=== PATIENT | male | born 1960 | race African-American/Black ===

== ENCOUNTER 2018-05-05 01:47 | Emergency (ER) | payer OTHER ==
[~2018-05-05] VITALS: Ht 190.5 cm; Wt 93.0 kg
[~2018-05-05 01:47] MED LIST: HYDROCODONE-AP1 EAC6 PO; IBUPROFEN 400400 M1 PO; IRON325 PO; KEFLEX500 MG PO; MEDROL DOSPAK21 TA1 PO; ULTRAM 50MG TAB50 MG PO; ZANTAC 150MG T150 M1 PO
[2018-05-05 02:54] LABS: ABSOLUTE NEUTROPHILS 2.9 thou/uL (1.4-8.2); EOSINOPHILS 5.1 % (0.0-3.0); HEMATOCRIT 36.8 % (42.0-52.0); HEMOGLOBIN 12.5 gm/dL (14.0-18.0); LYMPHOCYTES 35.8 % (24.0-44.0); MCH 31.9 pg (26.0-34.0); MCHC 33.9 g/dL (28.0-37.0); MCV 93.9 fL (80.0-100.0); MONOCYTES 7.4 % (1.0-8.0); PLATELET COUNT 297 thou/uL (150-400); POLYS 50.7 % (36.0-66.0); RBC 3.92 mil/uL (4.50-6.00); RDW 13.8 % (10.5-14.5); WBC 5.7 thou/uL (4.0-11.0)
[2018-05-05 02:59] LABS: CREATININE 0.9 mg/dL (0.7-1.3); POTASSIUM 4.2 mmol/L (3.5-5.1)
[2018-05-05] MEDS ORDERED: KEFLEX500 M1 PO (03:17)
[2018-05-05] MEDS ORDERED: NORCO 5-325 TA1 EACH PO (03:18)
[2018-05-05 04:40] VITALS: BP 144/79
== END 2018-05-05 04:40 | disposition home or self-care (01) ==
LOC: ER 01:47
PROVIDERS: Emergency Medicine
DX: L03.114 Cellulitis of left upper limb (principal); Z86.14 Personal history of Methicillin resistant Staphylococcus aureus infection

== ENCOUNTER 2018-06-11 06:31 | Emergency (ER) | payer OTHER ==
[~2018-06-11] VITALS: Ht 190.5 cm; Wt 93.0 kg
[~2018-06-11 06:31] MED LIST changes: +KEFLEX500 M1 PO; +NORCO 5-325 TA1 EACH PO
[2018-06-11 06:37] VITALS: BP 133/95
[2018-06-11] MEDS ORDERED: MOBIC15 MG PO (07:08)
== END 2018-06-11 07:20 | disposition home or self-care (01) ==
LOC: ER 06:31
DX: M65.841 Other synovitis and tenosynovitis, right hand (principal); F17.200 Nicotine dependence, unspecified, uncomplicated

== ENCOUNTER 2018-11-17 05:10 | Emergency (ER) | payer OTHER ==
[~2018-11-17] VITALS: Ht 190.5 cm; Wt 90.7 kg
[~2018-11-17 05:10] MED LIST changes: +MOBIC15 MG PO
[2018-11-17] MEDS ORDERED: TOBRAMYCIN SULFA5 M1 OPHTHALMIC (06:03)
[2018-11-17 06:16] VITALS: BP 156/90
== END 2018-11-17 06:25 | disposition home or self-care (01) ==
LOC: ER 05:10
DX: S05.02XA Injury of conjunctiva and corneal abrasion without foreign body, left eye, initial encounter (principal); Y29.XXXA Contact with blunt object, undetermined intent, initial encounter; Y93.89 Activity, other specified; Y92.89 Other specified places as the place of occurrence of the external cause; Y99.8 Other external cause status

== ENCOUNTER 2018-12-03 04:13 | Emergency (ER) | payer OTHER ==
[~2018-12-03] VITALS: Ht 190.5 cm; Wt 88.5 kg
[~2018-12-03 04:13] MED LIST changes: +TOBRAMYCIN SULFA5 M1 OPHTHALMIC
[2018-12-03 04:17] VITALS: BP 141/87
[2018-12-03] MEDS ORDERED: NAPROSYN500 MG PO (04:58)
[2018-12-03] MEDS ORDERED: TRAMADOL 50 MG50 MG PO (04:58)
== END 2018-12-03 05:10 | disposition home or self-care (01) ==
LOC: ER 04:13
DX: S93.401A Sprain of unspecified ligament of right ankle, initial encounter (principal); F17.200 Nicotine dependence, unspecified, uncomplicated; Z86.14 Personal history of Methicillin resistant Staphylococcus aureus infection; X50.0XXA Overexertion from strenuous movement or load, initial encounter; Y92.89 Other specified places as the place of occurrence of the external cause; Y93.89 Activity, other specified; Y99.8 Other external cause status

== ENCOUNTER → 2020-07-14 | Outpatient (CLI) | payer OTHER ==
[~2020-07-14] MED LIST changes: +NAPROSYN500 MG PO; +TRAMADOL 50 MG50 MG PO
[2020-07-14 11:32] LABS: ABSOLUTE NEUTROPHILS 2.4 thou/uL (1.4-8.2); BASOPHILS 1.1 % (0.0-2.0); EOSINOPHILS 3.5 % (0.0-3.0); HEMATOCRIT 38.7 % (42.0-52.0); HEMOGLOBIN 13.3 gm/dL (14.0-18.0); LYMPHOCYTES 37.5 % (24.0-44.0); MCH 33.5 pg (26.0-34.0); MCHC 34.3 g/dL (28.0-37.0); MCV 97.6 fL (80.0-100.0); MONOCYTES 8.6 % (1.0-8.0); PLATELET COUNT 299 thou/uL (150-400); POLYS 49.3 % (36.0-66.0); RBC 3.96 mil/uL (4.50-6.00); RDW 14.2 % (10.5-14.5); WBC 4.9 thou/uL (4.0-11.0)
[2020-07-14 11:50] LABS: ALBUMIN 3.8 g/dL (3.4-5.0); ANION GAP 8 mmol/L (7-16); BUN 16 mg/dL (7-18); CHLORIDE 104 mmol/L (98-107); CHOLESTEROL 214 mg/dL (<200); CO2 29 mmol/L (21-32); CREATININE 1.1 mg/dL (0.7-1.3); GLUCOSE 98 mg/dL (74-106); HDL CHOLESTEROL 111 mg/dL (>40); LDL CHOLESTEROL 84 mg/dL (<100); POTASSIUM 4.6 mmol/L (3.5-5.1); SGOT 22 U/L (15-37); SGPT 32 U/L (30-65); SODIUM 141 mmol/L (136-145); TC:HDL 1.9 Ratio (Not establshd); TOTAL BILIRUBIN 0.7 mg/dL (0.2-1.0); TOTAL PROTEIN 7.8 g/dL (6.4-8.2); TRIGLYCERIDE 98 mg/dL (<150); VLDL 20 mg/dL (<40)
[2020-07-15 00:06] LABS: GLYCOHEMOGLOBIN (HGB A1C) 5.6 % (4.8-5.6)
== END ==
LOC: LAB 10:45
PROVIDERS: ATTEND Family Medicine
DX: Z00.00 Encounter for general adult medical examination without abnormal findings (principal)

== ENCOUNTER → 2021-03-20 | Outpatient (CLI) | payer OTHER | LOC: LAB 05:41 | PROVIDERS: ATTEND Student in an Organized Health Care Education/Training Program | DX: Z01.812 Encounter for preprocedural laboratory examination (principal); Z20.822 Contact with and (suspected) exposure to COVID-19 ==

== ENCOUNTER → 2021-03-21 | Outpatient (CLI) | payer OTHER ==
[~2021-03-21] VITALS: Ht 188 cm; Wt 90.7 kg
--- NOTE | 2021-03-27 11:07 | PATH ---
[facility] [place] [address] PATHOLOGY RPT PROCEDURE Name: HESHAM EMANUEL Room #: REG [facility] Luis.#: [id number] Admission: 03/21/21 Date of : 64 Discharge: Report #: [id number] Path Case #: [id number] [facility] Accession Number: [id number] . 01 Material submitted: . PART A: ileo-cecal valve - ILEOCECAL VALVE POLYP PART B: colon - ASCENDING COLON POLYP BIOPSY. Modifiers: ascending PART C: splenic flexure - SPLENIC FLEXURE POLYP . 01 Clinical history: . COLONOSCOPY COLON POLYPS, DIVERTICULOSIS, INTERNAL HEMORRHOIDS . 02 Diagnosis: A. Ileocecal valve polyp, polypectomy: - Fragments of tubular adenoma. - Negative for high-grade dysplasia or malignancy. . B. Ascending colon polyp, biopsy: - Tubular adenoma. - Negative for high-grade dysplasia or malignancy. . C. Splenic flexure polyp, polypectomy: - Tubular adenoma. - Negative for high-grade dysplasia or malignancy. (ANK:pit; 03/23/2021) QTP 03/23/2021 1051 Local . 02 Electronically signed: . Cecy Mustafa MD, Pathologist NPI- [id number] . 01 Gross description: . A. The specimen is received in formalin, labeled "Hesham Emanuel, ileocecal valve polyp" and consists of multiple morocho to pale yellow irregular tissues aggregating 2.0 x 0.9 x 0.3 cm which are filtered and submitted in toto in A1. . B. The specimen is received in formalin, labeled "Hesham Emanuel, ascending colon polyp BX" and consists of 2 morocho irregular tissues aggregating 0.4 x 0.3 x 0.2 cm which are submitted in toto in B1. . C. The specimen is received in formalin, labeled "Hesham Emanuel, splenic flexure polyp" and consists of multiple morocho irregular tissues aggregating 1.4 x 0.9 x 0.2 cm which are filtered and submitted in toto in C1.([facility] [place]; 03/22/2021) DKA/DKA 03/22/2021 [address] [place] [address] PATHOLOGY RPT PROCEDURE Name: HESHAM EMANUEL [place] Room #: REG CLI Steve#: [id number] Admission: 03/21/21 Date of : 64 Discharge: Report #: [id number] Path Case #: [id number] . 02 Pathologist provided ICD-10: D12.0, D12.2, D12.3 . 02 CPT . 573860, 309058, 950803 Specimen Comment: A courtesy copy of this report has been sent to [phone] Specimen Comment: [id number] Specimen Comment: Report sent to / DR GUSTAFSON Specimen Comment: A duplicate report has been generated due to demographic updates. Performed at: [address], [place] [id number] MD Dominic Lopez MD Phone: [phone] Performed at: [address] [id number] MD Cecy Mustafa MD Phone: [phone]
== END | disposition home or self-care (01) ==
LOC: GI
PROVIDERS: ATTEND Internal Medicine Gastroenterology
DX: Z12.11 Encounter for screening for malignant neoplasm of colon (principal); D12.0 Benign neoplasm of cecum; D12.2 Benign neoplasm of ascending colon; D12.3 Benign neoplasm of transverse colon; K57.30 Diverticulosis of large intestine without perforation or abscess without bleeding; K64.8 Other hemorrhoids; F17.210 Nicotine dependence, cigarettes, uncomplicated; Z98.890 Other specified postprocedural states; Z79.899 Other long term (current) drug therapy
CPT/HCPCS: 62110; 62900

== ENCOUNTER 2021-04-05 22:24 | Emergency (ER) | payer OTHER ==
[~2021-04-05] VITALS: Ht 190.5 cm; Wt 90.7 kg
[2021-04-05 23:58] LABS: ABSOLUTE NEUTROPHILS 6.3 thou/uL (1.4-8.2); BASOPHILS 0.7 % (0.0-2.0); EOSINOPHILS 1.2 % (0.0-3.0); HEMATOCRIT 36.7 % (42.0-52.0); HEMOGLOBIN 12.2 gm/dL (14.0-18.0); LYMPHOCYTES 20.4 % (24.0-44.0); MCH 32.7 pg (26.0-34.0); MCHC 33.3 g/dL (28.0-37.0); MCV 98.2 fL (80.0-100.0); MONOCYTES 5.7 % (1.0-8.0); PLATELET COUNT 317 thou/uL (150-400); RBC 3.74 mil/uL (4.50-6.00); RDW 14.2 % (10.5-14.5); WBC 8.8 thou/uL (4.0-11.0)
[2021-04-05 23:58] LABS: CALCIUM 9.1 mg/dL (8.5-10.1); CREATININE 0.9 mg/dL (0.7-1.3); POTASSIUM 4.1 mmol/L (3.5-5.1)
[2021-04-06] MEDS ORDERED: DOXYCYCLINE 10100 MG PO (00:15)
[2021-04-06] MEDS ORDERED: APAP W/CODEINE1 TA2 PO (00:15)
[2021-04-06] MEDS ORDERED: NAPROSYN500 MG PO (00:15)
[2021-04-06 00:25] VITALS: BP 143/86
== END 2021-04-06 00:26 | disposition home or self-care (01) ==
LOC: ER 22:24
PROVIDERS: Emergency Medicine
DX: M19.90 Unspecified osteoarthritis, unspecified site (principal)